=== PATIENT | male | born 1990 | race Caucasian/White ===

== ENCOUNTER 2017-04-09 12:46 | Emergency (ER) | payer OTHER, BC ==
[2017-04-09 12:52] VITALS: BP 153/87
--- NOTE | 2017-04-09 13:16 | ER Document Report ---
HPI - HPI Patient complains to provider of: Left wrist injury Onset: Yesterday - [place] Onset/Duration: Sudden Quality of pain: Throbbing Pain Level: 3 Context: 27-year-old male fell off a [address] cole in [place] yesterday in is concerned that he fractured his distal left radius. He had a radial fracture in the past. Associated Symptoms: None Exacerbated by: Movement Relieved by: Denies Similar symptoms previously: Yes Recently seen / treated by doctor: No - ROS ROS below otherwise negative: Yes Systems Reviewed and Negative: Yes All other systems reviewed and negative - DERM Skin Color: Normal Past Medical History - General Information source: Patient - Social History Smoking Status: Never Smoker Frequency of alcohol use: None Drug Abuse: None Occupation: Retirement corrections specialist Lives with: Family Family History: Reviewed & Not Pertinent Patient has suicidal ideation: No Patient has homicidal ideation: No Renal/ Medical History: Denies: Hx Peritoneal Dialysis Musculoskeltal Medical History: Reports Other - radial Fracture Surgical Hx: Negative Vertical Provider Document - CONSTITUTIONAL Agree With Documented VS: Yes Exam Limitations: No Limitations - INFECTION CONTROL TRAVEL OUTSIDE OF THE [place] IN LAST 30 DAYS: No - NECK Neck: Supple - RESPIRATORY O2 Sat by Pulse Oximetry: 99 - MUSCULOSKELETAL/EXTREMETIES Musculoskeletal/Extremeties: MAEW, FROM, Edema - Tender distal left radius, nontender snuffbox, nontender ulnar styloid - NEURO Level of Consciousness: Awake, Alert Motor/Sensory: No Motor Deficit, No Sensory Deficit Notes: n/v intact - DERM Integumentary: Warm, Dry Course - Re-evaluation Re-evalutation: 04/09/17 14:09 X-ray is negative - Vital Signs Vital signs: Temp Pulse Resp BP Pulse Ox 98.2 F 74 16 153/87 H 99 04/09/17 12:51 04/09/17 12:51 04/09/17 12:51 04/09/17 12:51 04/09/17 12:51 Procedures - Immobilization Left Wrist Time completed: 14:40 Pre-Proc Neuro Vasc Exam: Normal Immobilizer type: Cock-up Performed by: PCT Post-Proc Neuro Vasc Exam: Normal Alignment checked and good: Yes Discharge - Discharge Clinical Impression: Left wrist sprain Condition: Good Disposition: HOME, SELF-CARE Instructions: Wrist Sprain ([facility]), Temporary Splint ([facility]) Additional Instructions: to er if worse copy of negative xray splint for comfort this week Please complete the patient satisfaction survey if you get one, and return it.. If you do not receive a survey, then you can go to the [facility] website, [email or web address] and place your comments about your very good care. Thank you very much. It was a pleasure being your medical provider today. Prescriptions: Ibuprofen [Motrin 800 mg Tablet] 800 mg PO Q8HP PRN #30 tablet PRN Reason: Forms: Return to Work
--- NOTE | 2017-04-09 14:04 | RADIOLOGY REPORT (SQ) ---
EXAM DESCRIPTION: WRIST LEFT 3 VIEWS COMPLETED DATE/TIME: 04/09/2017 1:47 pm REASON FOR STUDY: fell yesterday, pain distal right radius COMPARISON: None. NUMBER OF VIEWS: Three views. TECHNIQUE: AP, lateral, and oblique radiographic images acquired of the left wrist. LIMITATIONS: None. FINDINGS: MINERALIZATION: Normal. BONES: No acute fracture or dislocation. No worrisome bone lesions. Normal alignment. SOFT TISSUES: Joint effusion. OTHER: No other significant finding. IMPRESSION: Soft tissue injury. TECHNICAL DOCUMENTATION: JOB ID: [id number] [employer]- All Rights Reserved
== END 2017-04-09 14:45 | disposition home or self-care (01) ==
LOC: ER 12:46
DX: S63.502A Unspecified sprain of left wrist, initial encounter (principal); V86.99XA Unspecified occupant of other special all-terrain or other off-road motor vehicle injured in nontraffic accident, initial encounter
CPT/HCPCS: 99283; 73110; L3984 ×2; L3908